=== PATIENT | female | born 1960 | race Two or more races ===

== ENCOUNTER 2021-10-02 20:19 | Emergency (ER) | payer OTHER ==
[~2021-10-02] VITALS: Ht 170.2 cm; Wt 89.8 kg
[~2021-10-02 20:19] MED LIST: ATACAND16 MG; WELLBUTRIN100 MG
== END 2021-10-02 21:20 | disposition home or self-care (01) ==
LOC: ER 20:19
DX: R06.02 Shortness of breath (principal); I10 Essential (primary) hypertension